=== PATIENT | male | born 1970 | race Caucasian/White ===

== ENCOUNTER → 2017-05-09 | Outpatient (CLI) | payer OTHER ==
--- NOTE | 2017-05-09 13:46 | KCIC ---
MR of the right elbow with and without contrast HISTORY: Suspected distal biceps tendon partial tear. Increase in anterior elbow pain recently. Known tear from years ago. No surgery. TECHNIQUE: Routine multiplanar sequences are obtained. FINDINGS: There is mild irregularity of the distal biceps tendon, with a split morphology. Split morphology. No transverse rupture or retraction. No significant bicipitoradial bursal effusion. The brachialis tendon is intact. Triceps tendon insertion is intact. The common flexor tendon and ulnar collateral ligament are intact. Common extensor tendinosis. There is a partial tear at the footplate attachment, involving about 50 percent of the fibers. Thickening and hyperintense signal within the proximal radial collateral ligament and lateral ulnar collateral ligament compatible with degeneration or sprain. No bone lesion or acute fracture. No significant joint effusion. Ulnar nerve appears unremarkable. No intrinsic muscle pathology. IMPRESSION: 1. There is a longitudinal defect of the biceps tendon, compatible with a longitudinal split tear. There is no evidence of an acute tear, or transverse rupture or retraction. 2. Common extensor tendinosis, with a partial tear at the humeral attachment. Proximal lateral collateral ligaments also demonstrate degeneration or sprain. Electronically signed by: Max Flynn MD (05/09/2017 1:42 PM) [facility]
== END | disposition home or self-care (01) ==
LOC: KCIC MRI 12:20
PROVIDERS: ATTEND Physician Assistant
DX: S66.911A Strain of unspecified muscle, fascia and tendon at wrist and hand level, right hand, initial encounter (principal); X58.XXXA Exposure to other specified factors, initial encounter; Y93.89 Activity, other specified; Y92.89 Other specified places as the place of occurrence of the external cause; Y99.8 Other external cause status
CPT/HCPCS: 73221